=== PATIENT | male | born 1990 | race Hispanic/Latino ===

== ENCOUNTER 2023-11-25 14:42 | Emergency (ER) | payer SELFPAY ==
[2023-11-25] MEDS ORDERED: Acetaminophen 500 MG TAB ONE (16:10)
[2023-11-25 16:35] LABS: #Basophils 0.03 10x3/uL (0.0-0.2); %Basophils 0.3 % (0.0-1.0); %Eosinophils 2.5 % (0.0-10.0); %Lymphocytes 9.8 % (21.0-51.0); %Monocytes 6.6 % (0.0-10.0); %Neutrophils 80.5 % (42.0-75.0); Hematocrit 44.7 % (42.0-52.0); Mean Corpuscular HGB CONC 33.6 g/dL (32.0-36.0); Mean Corpuscular Hemoglobin 28.8 pg (27.0-31.0); Mean Corpuscular Volume 85.8 fL (78.0-98.0); Platelet Count 338 10x3/uL (130-400); RBC Distribution Width 13.1 % (11.5-14.5); Red Blood Cell (RBC) Count 5.21 mill/uL (4.70-6.10)
[2023-11-25 17:01] LABS: ALT (SGPT) 38 U/L (8-55); AST (SGOT) 23 U/L (5-34); Albumin 4.1 g/dL (3.5-5.0); Alkaline Phosphatase 95 U/L (40-110); Anion Gap 13 mmol/L (10-20); BUN (Urea Nitrogen) 7 mg/dL (8.9-20.6); Bilirubin, Total 0.7 mg/dL (0.2-1.2); Calc. Creatinine Clearance 0 mL/min (70-130); Calcium 10.1 mg/dL (7.8-10.44); Carbon Dioxide 24 mmol/L (22-29); Chloride 104 mmol/L (98-107); Estimated GFR 117; Globulin 4.4 g/dL (2.4-3.5); Glucose 121 mg/dL (70-105); Potassium 3.5 mmol/L (3.5-5.1); Protein, Total 8.5 g/dL (6.0-8.3); Sodium 137 mmol/L (136-145)
[2023-11-25] MEDS ORDERED: Metoclopramide HCl 10 MG (2 mL) VIAL ONE (17:22)
[2023-11-25 17:27] LABS: Bacteria/HPF None Seen HPF (None Seen); Bilirubin Negative (Negative); Blood, Urine Negative (Negative); CAUTI Indications for Culture Dysuria,urgency,freq; Clarity Clear (Clear); Glucose, Urine (Dipstick) Normal (Negative); Ketone, Urine Negative (Negative); Leukocyte Negative Leu/uL (Negative); Nitrite Negative (Negative); Protein, Urine (Dipstick) Negative (Neg-Trace); RBC/HPF 0-3 HPF (0-3); Specific Gravity, Urine 1.002 (1.002-1.036); Squamous Epithelial 0-3 HPF (0-3); Urobilinogen Normal mg/dL (Less than 2); WBC/HPF None Seen HPF (0-3); pH, Urine 6.5 (5.0-9.0)
[2023-11-25 17:30] LABS: Urine Culture Reflex No No
[2023-11-25] MEDS ORDERED: Magnesium 2 GM/50 ML BAG (IN WATER) ONE (18:28)
[2023-11-25 22:53] LABS: SARS-CoV-2 N1 Negative; SARS-CoV-2 N2 Negative; SARS-CoV-2 RNAse P1 Positive
== END 2023-11-25 19:41 | disposition home or self-care (01) ==
LOC: ERS 14:42
DX: B34.9 Viral infection, unspecified (principal)
CPT/HCPCS: 36415; 70450; 71045; 80053; 81001; 83605; 85025; 87040; 87635; 87804; 96374; 96375; J2765; J3475